=== PATIENT | female | born 1985 | race Hispanic/Latino ===

== ENCOUNTER 2024-05-09 16:41 | Emergency (ER) | payer SELFPAY ==
[2024-05-09] VITALS (8 sets, daily range): BP systolic 99–108; BP diastolic 50–64
[~2024-05-09] VITALS: Ht 152.4 cm; Wt 48.0 kg
[2024-05-09 17:15] LABS: URINE BILIRUBIN - DIPSTICK Negative (NEGATIVE); URINE BLOOD DIPSTICK Large (NEGATIVE); URINE COLOR Yellow; URINE GLUCOSE - DIPSTICK Negative (NEGATIVE); URINE KETONE Negative (NEGATIVE); URINE LEUK ESTERASE Small (NEGATIVE); URINE NITRITE - DIPSTICK Negative (Negative); URINE PROTEIN - DIPSTICK 100 mg/dL (NEG-TRACE); URINE UROBILINOGEN - DIPSTICK 0.2 E.U./dL (0.2)
[2024-05-09 17:26] LABS: URINE BACTERIA MODERATE hpf
[2024-05-09 17:27] LABS: URINE SQUAMOUS EPITHELIAL CELL FEW EPI/hpf (0-FEW)
[2024-05-09 17:30] LABS: BASO% 0.1 % (0-3); HEMATOCRIT 39.7 % (37.0-47.0); HEMOGLOBIN 13.2 g/dl (12.0-16.0); IMMATURE GRANULOCYTES 0.2 % (0.0-5.0); LYMPH% 28.8 % (15-41); MEAN CORPUSCULAR HGB 30.9 pG CALC (26.0-32.0); MEAN CORPUSCULAR HGB CONC 33.2 g/dL CAL (32.0-36.0); MONO% 6.1 % (2-13); NEUT# 5.46 thou/uL (2.00-7.15); NEUT% 62.8 % (42-76); RED BLOOD COUNT 4.27 mill/uL (4.20-5.60); RED CELL DISTRI WIDTH 11.9 % (11.5-15.5)
[2024-05-09 17:40] LABS: ALBUMIN 4.4 g/dL (3.2-5.0); BILIRUBIN, TOTAL 0.3 mg/dL (0.02-1.3); CREATININE 0.8 mg/dL (0.5-1.0); POTASSIUM 3.8 mmol/l (3.5-5.1); TOTAL PROTEIN 7.6 g/dL (6.3-8.2)
[2024-05-09] MEDS ORDERED: NITROFURANTOIN100 M1 PO (18:45)
== END 2024-05-09 19:10 | disposition home or self-care (01) | DRG 779 ==
LOC: ED 16:41
PROVIDERS: Family Medicine
DX: O03.9 Complete or unspecified spontaneous abortion without complication (principal); N39.0 Urinary tract infection, site not specified